=== PATIENT | male | born 1970 | race Caucasian/White ===

== ENCOUNTER 2017-10-09 06:16 | Inpatient (IN) | payer SELFPAY ==
[~2017-10-09] VITALS: Ht 182.9 cm; Wt 82.8 kg
[2017-10-09] MEDS ORDERED: IOPAMIDOL-370 100 ML VIAL IV ONE (06:35)
[2017-10-09] MEDS ORDERED: SODIUM CHLORIDE 0.9% 1000ML 1,000 ML IV ONE (06:39)
[2017-10-09] MEDS ORDERED: ONDANSETRON HCL MDV 20ML 2 MG/ML VIAL ONE (06:39)
[2017-10-09] MEDS ORDERED: MORPHINE SULFATE 4 MG/1ML SYG ONE ×2 (06:40→09:11)
[2017-10-09 07:19] LABS: BASOPHILS % (AUTO) 0.3 % (0.0-5.0); EOSINOPHILS % (AUTO) 0.2 % (0.0-8.0); HEMATOCRIT 43.1 % (42-54); LYMPHOCYTES % (AUTO) 6.6 % (21.0-51.0); MEAN CORPUSCULAR HEMOGLOBIN 30.1 pg (27.0-33.0); MEAN CORPUSCULAR HGB CONC 33.5 g/dL (32.0-36.0); MEAN CORPUSCULAR VOLUME 89.9 fL (79-99); MONOCYTES % (AUTO) 6.1 % (3.0-13.0); NEUTROPHILS % (AUTO) 86.8 % (40.0-77.0); PLATELET COUNT (AUTO) 241 K/uL (130-400); RED CELL DISTRIBUTION WIDTH 13.8 % (11.0-15.5); WHITE BLOOD COUNT (AUTO) 11.9 K/uL (4.8-10.8)
[2017-10-09 07:25] LABS: CARBON DIOXIDE 32 mmol/L (21-32); CHLORIDE 103 mmol/L (101-111); CREATININE 1.2 mg/dL (0.5-1.5); GLOMERULAR FILTR. RATE CALC 69 mL/min (>60); GLUCOSE,RANDOM 124 mg/dL (70-105); POTASSIUM 3.4 mmol/L (3.5-5.1); SODIUM SERUM 141 mmol/L (136-145); UREA NITROGEN, BLOOD 15 mg/dL (7-18)
[2017-10-09 07:26] LABS: ALCOHOL, BLOOD < 3 mg/dL (0-10)
[2017-10-09 07:28] LABS: INR 1.01 (0.85-1.15); PARTIAL THROMBOPLASTIN TIME 22.5 SEC (26.3-35.5); PROTHROMBIN TIME 10.6 SEC (9.6-11.6)
[2017-10-09 07:32] LABS: ALANINE AMINOTRANSFERASE 46 U/L (12-78); ASPARTATE AMINOTRANSFERASE 41 U/L (10-37); BILIRUBIN,TOTAL 1.7 mg/dL (0.2-1.0); TOTAL PROTEIN, SERUM 7.6 g/dL (6.0-8.3)
[2017-10-09 08:28] LABS: APPEARANCE,URINE Clear (CLEAR); BILIRUBIN,URINE Negative (NEGATIVE); COLOR,URINE Yellow (YELLOW); GLUCOSE, URINE (UA) Negative (NEGATIVE); KETONES,URINE Negative (NEGATIVE); LEUKOCYTE ESTERASE ,URINE Negative (NEGATIVE); NITRATE,URINE Negative (NEGATIVE); OCCULT BLOOD,URINE Moderate (NEGATIVE); PROTEIN,URINE POS 1+ (NEGATIVE); UROBILINOGEN,URINE 0.2 mg/dL (0.2-1.0)
[2017-10-09 08:35] LABS: AMPHET/METH SCREEN,URINE NEGATIVE (NEGATIVE); BACTERIA,URINE Rare /HPF (None Seen); BARBITURATE SCREEN, URINE NEGATIVE (NEGATIVE); BENZODIAZEPINES SCREEN,URINE NEGATIVE (NEGATIVE); CANNABINOID SCREEN,URINE NEGATIVE (NEGATIVE); COCAINE SCREEN,URINE NEGATIVE (NEGATIVE); OPIATE SCREEN,URINE NEGATIVE (NEGATIVE); PHENCYCLIDINE SCREEN,URINE NEGATIVE (NEGATIVE); SQUAMOUS EPITHELIAL CELL,UR Rare /LPF (0-2); WBC,URINE 0-1 /HPF (0-1)
[2017-10-09] MEDS ORDERED: KETOROLAC TROMETHAMINE 30MG/ML ONE (09:10)
[2017-10-09] MEDS ORDERED: IPRATROPIUM/ALBUTEROL SULFATE 3 ML SOLUTION IH ONE (11:03)
[2017-10-09 11:43] VITALS: BP 149/88
[2017-10-09] MEDS ORDERED: MORPHINE SULFATE 4 MG/1ML SYG IVP PRN (13:00)
[2017-10-09] MEDS ORDERED: ACETAMINOPHEN-CODEINE 300/30MG TAB PO PRN (13:00)
[2017-10-09] MEDS: KETOROLAC TROMETHAMINE 30MG/ML IV SCH ×2 (14:38→18:48)
[2017-10-09 16:00] VITALS: BP 141/76
[2017-10-09 19:00] VITALS: BP 138/72
[2017-10-09 23:45] VITALS: BP 155/90
[2017-10-10] MEDS: KETOROLAC TROMETHAMINE 30MG/ML IV SCH ×2 (00:02→06:42)
[2017-10-10 01:23] VITALS: BP 134/72
[2017-10-10 04:00] VITALS: BP 137/72
[2017-10-10 08:23] VITALS: BP 132/73
== END 2017-10-10 12:05 | disposition home or self-care (01) | DRG 965 ==
LOC: EDH 06:16 → EDHIP 06:17 → 2AH 12:20 → 4BH 10-10 01:23
PROVIDERS: ADMIT Student in an Organized Health Care Education/Training Program; ATTEND Student in an Organized Health Care Education/Training Program
DX: S37.812A Contusion of adrenal gland, initial encounter (principal); S27.321A Contusion of lung, unilateral, initial encounter; R07.81 Pleurodynia; W18.39XA Other fall on same level, initial encounter; Y93.89 Activity, other specified; Y92.89 Other specified places as the place of occurrence of the external cause; Y99.8 Other external cause status
CPT/HCPCS: 36415; 70450; 71045; 71260; 72125; 74177; 80053; 80305; 81001; 85025; 85610; 85730; 86850; 86900; 86901; 99291; G0480; J1885; J2270; J7030; Q9967

== ENCOUNTER 2017-11-03 09:19 | Emergency (ER) | payer SELFPAY ==
[2017-11-03 10:31] LABS: B-TYPE NATRIURETIC PEPTIDE < 5 pg/mL (0-100)
[2017-11-03 11:03] LABS: BASOPHILS % (AUTO) 0.4 % (0.0-5.0); EOSINOPHILS % (AUTO) 1.6 % (0.0-8.0); HEMATOCRIT 41.2 % (42-54); LYMPHOCYTES % (AUTO) 14.6 % (21.0-51.0); MEAN CORPUSCULAR HEMOGLOBIN 30.8 pg (27.0-33.0); MEAN CORPUSCULAR HGB CONC 34.8 g/dL (32.0-36.0); MEAN CORPUSCULAR VOLUME 88.4 fL (79-99); NEUTROPHILS % (AUTO) 74.4 % (40.0-77.0); PLATELET COUNT (AUTO) 245 K/uL (130-400); RED BLOOD CELL COUNT(AUTO) 4.66 MIL/uL (4.50-6.20); RED CELL DISTRIBUTION WIDTH 13.5 % (11.0-15.5); WHITE BLOOD COUNT (AUTO) 4.4 K/uL (4.8-10.8)
[2017-11-03 11:15] LABS: ALBUMIN 3.6 g/dL (3.5-5.0); BILIRUBIN,TOTAL 1.2 mg/dL (0.2-1.0); TOTAL PROTEIN, SERUM 7.5 g/dL (6.0-8.3)
[2017-11-03] MEDS ORDERED: ISOVUE-370 50ML VIAL IV ONE (12:39)
== END 2017-11-03 14:03 | disposition home or self-care (01) ==
LOC: EDH 09:19
DX: S22.42XA Multiple fractures of ribs, left side, initial encounter for closed fracture (principal); J98.11 Atelectasis; X58.XXXA Exposure to other specified factors, initial encounter; Y93.89 Activity, other specified; Y92.89 Other specified places as the place of occurrence of the external cause; Y99.8 Other external cause status
CPT/HCPCS: 36415; 71045; 71260; 80053; 82550; 83880; 84484; 85025; 93005; 99285; Q9967

== ENCOUNTER 2019-10-15 17:23 | Emergency (ER) | payer SELFPAY ==
[2019-10-15 17:47] LABS: BASOPHILS % (AUTO) 0.3 % (0.0-5.0); EOSINOPHILS % (AUTO) 0.6 % (0.0-8.0); HEMATOCRIT 44.3 % (42-54); LYMPHOCYTES % (AUTO) 11.4 % (21.0-51.0); MEAN CORPUSCULAR HGB CONC 34.3 g/dL (32.0-36.0); MEAN CORPUSCULAR VOLUME 87.4 fL (79-99); NEUTROPHILS % (AUTO) 79.3 % (40.0-77.0); PLATELET COUNT (AUTO) 265 K/uL (130-400); RED BLOOD CELL COUNT(AUTO) 5.07 MIL/uL (4.50-6.20); RED CELL DISTRIBUTION WIDTH 13.1 % (11.0-15.5); WHITE BLOOD COUNT (AUTO) 7.9 K/uL (4.8-10.8)
[2019-10-15 17:52] LABS: CREATININE 1.5 mg/dL (0.5-1.5); POTASSIUM 3.7 mmol/L (3.5-5.1)
[2019-10-15 17:57] LABS: ALBUMIN 4.5 g/dL (3.5-5.0); BILIRUBIN,TOTAL 2.1 mg/dL (0.2-1.0); TOTAL PROTEIN, SERUM 8.3 g/dL (6.0-8.3)
[2019-10-15] MEDS ORDERED: KETOROLAC TROMETHAMINE 60 MG/2 ML VIAL ONE (18:09)
[2019-10-15] MEDS ORDERED: CYCLOBENZAPRINE HCL 10 MG TABLET ONE (18:10)
== END 2019-10-15 19:30 | disposition home or self-care (01) ==
LOC: EDH 17:23
DX: S29.011A Strain of muscle and tendon of front wall of thorax, initial encounter (principal); R06.00 Dyspnea, unspecified; X50.0XXA Overexertion from strenuous movement or load, initial encounter; Y93.89 Activity, other specified; Y92.89 Other specified places as the place of occurrence of the external cause; Y99.8 Other external cause status
CPT/HCPCS: 36415; 71045; 80053; 82550; 84484; 85025; 93005; 96372; 99285; J1885

== ENCOUNTER 2019-11-14 06:42 | Emergency (ER) | payer SELFPAY ==
[2019-11-14 06:53] LABS: BASOPHILS % (AUTO) 0.4 % (0.0-5.0); EOSINOPHILS % (AUTO) 1.1 % (0.0-8.0); HEMATOCRIT 43.2 % (42-54); LYMPHOCYTES % (AUTO) 18.5 % (21.0-51.0); MEAN CORPUSCULAR HEMOGLOBIN 29.7 pg (27.0-33.0); MEAN CORPUSCULAR HGB CONC 34.3 g/dL (32.0-36.0); MEAN CORPUSCULAR VOLUME 86.6 fL (79-99); MONOCYTES % (AUTO) 8.3 % (3.0-13.0); NEUTROPHILS % (AUTO) 71.5 % (40.0-77.0); PLATELET COUNT (AUTO) 224 K/uL (130-400); RED BLOOD CELL COUNT(AUTO) 4.99 MIL/uL (4.50-6.20); RED CELL DISTRIBUTION WIDTH 12.7 % (11.0-15.5); WHITE BLOOD COUNT (AUTO) 4.5 K/uL (4.8-10.8)
[2019-11-14 07:03] LABS: CARBON DIOXIDE 28 mmol/L (21-32); CHLORIDE 102 mmol/L (101-111); CREATININE 1.1 mg/dL (0.5-1.5); GLOMERULAR FILTR. RATE CALC 75 mL/min (>60); GLUCOSE,RANDOM 97 mg/dL (70-105); POTASSIUM 3.7 mmol/L (3.5-5.1); SODIUM SERUM 139 mmol/L (136-145); UREA NITROGEN, BLOOD 17 mg/dL (7-18)
[2019-11-14 07:09] LABS: ACETAMINOPHEN 5 mcg/mL (10-29); ALANINE AMINOTRANSFERASE 21 U/L (12-78); ALCOHOL, BLOOD < 3 mg/dL (0-10); ASPARTATE AMINOTRANSFERASE 15 U/L (10-37); BILIRUBIN,TOTAL 1.4 mg/dL (0.2-1.0); TOTAL PROTEIN, SERUM 7.3 g/dL (6.0-8.3)
[2019-11-14 07:10] LABS: SALICYLATE < 2.8 mg/dL (2.8-20.0)
[2019-11-14 07:42] LABS: APPEARANCE,URINE Clear (CLEAR); BILIRUBIN,URINE Negative (NEGATIVE); COLOR,URINE Yellow (YELLOW); GLUCOSE, URINE (UA) Negative (NEGATIVE); KETONES,URINE Negative (NEGATIVE); LEUKOCYTE ESTERASE ,URINE Negative (NEGATIVE); NITRATE,URINE Negative (NEGATIVE); OCCULT BLOOD,URINE Negative (NEGATIVE); PROTEIN,URINE Negative (NEGATIVE); UROBILINOGEN,URINE 0.2 mg/dL (0.2-1.0)
[2019-11-14 07:49] LABS: AMPHET/METH SCREEN,URINE NEGATIVE (NEGATIVE); BARBITURATE SCREEN, URINE NEGATIVE (NEGATIVE); BENZODIAZEPINES SCREEN,URINE NEGATIVE (NEGATIVE); CANNABINOID SCREEN,URINE NEGATIVE (NEGATIVE); COCAINE SCREEN,URINE NEGATIVE (NEGATIVE); OPIATE SCREEN,URINE NEGATIVE (NEGATIVE); PHENCYCLIDINE SCREEN,URINE NEGATIVE (NEGATIVE)
== END 2019-11-14 09:36 | disposition home or self-care (01) ==
LOC: EDH 06:42
DX: T50.991A Poisoning by other drugs, medicaments and biological substances, accidental (unintentional), initial encounter (principal); Y92.89 Other specified places as the place of occurrence of the external cause
CPT/HCPCS: 36415; 80053; 80305; 81003; 85025; 99283; G0480 ×2; G0481

== ENCOUNTER 2019-11-16 03:11 | Emergency (ER) | payer SELFPAY ==
[2019-11-16 03:49] LABS: ABG OXYGEN SATURATION 34.7 % (95.0-99.0); BASE EXCESS,VENOUS BLOOD GAS 1.1 (-2.0-3.0); HCO3,VENOUS BLOOD GAS 27.8 (21.0-28.0); PCO2,VENOUS BLOOD GAS 52 (35-48); PH,VENOUS BLOOD GAS 7.345 (7.350-7.450)
[2019-11-16 03:54] LABS: BASOPHILS % (AUTO) 0.3 % (0.0-5.0); EOSINOPHILS % (AUTO) 1.7 % (0.0-8.0); HEMATOCRIT 44.6 % (42-54); LYMPHOCYTES % (AUTO) 16.3 % (21.0-51.0); MEAN CORPUSCULAR HEMOGLOBIN 29.4 pg (27.0-33.0); MEAN CORPUSCULAR HGB CONC 33.9 g/dL (32.0-36.0); MEAN CORPUSCULAR VOLUME 86.9 fL (79-99); MONOCYTES % (AUTO) 6.6 % (3.0-13.0); NEUTROPHILS % (AUTO) 74.9 % (40.0-77.0); PLATELET COUNT (AUTO) 224 K/uL (130-400); RED BLOOD CELL COUNT(AUTO) 5.13 MIL/uL (4.50-6.20); RED CELL DISTRIBUTION WIDTH 12.7 % (11.0-15.5); WHITE BLOOD COUNT (AUTO) 6.1 K/uL (4.8-10.8)
[2019-11-16 04:02] LABS: CREATININE 1.2 mg/dL (0.5-1.5); POTASSIUM 3.6 mmol/L (3.5-5.1)
[2019-11-16 04:15] LABS: ALBUMIN 4.3 g/dL (3.5-5.0); BILIRUBIN,TOTAL 1.4 mg/dL (0.2-1.0); MAGNESIUM 2.5 mg/dL (1.80-2.40); THYROID STIMULATING HORMONE 1.49 uIU/mL (0.36-3.74); TOTAL PROTEIN, SERUM 7.7 g/dL (6.0-8.3)
== END 2019-11-16 05:34 | disposition home or self-care (01) ==
LOC: EDH 03:11
DX: G47.62 Sleep related leg cramps (principal)
CPT/HCPCS: 36415; 36600; 80053; 82550; 82803; 83735; 84443; 85025

== ENCOUNTER 2019-12-06 05:58 | Emergency (ER) | payer OTHER | END 2019-12-06 06:22 | disposition home or self-care (01) | LOC: EDH 05:58 | DX: H92.02 Otalgia, left ear (principal) | CPT/HCPCS: 99281 ==